=== PATIENT | male | born 1990 | race Caucasian/White ===

== ENCOUNTER 2022-09-16 20:19 | Emergency (ER) | payer MEDICAID, OTHER ==
[2022-09-16] MEDS ORDERED: SODIUM CHLORIDE 0.9% 1,000 ML IV STA (20:43)
[2022-09-16] MEDS ORDERED: PROCHLORPERAZINE 10 MG/2 ML VIAL IVP STA (20:43)
[2022-09-16] MEDS ORDERED: diphenhydrAMINE INJ 50 MG/ML VIAL IVP STA (20:44)
--- NOTE | 2022-09-16 20:46 | ED Physician Documentation ---
History of Present Illness - Stated complaint Stated Complaint: HEADACHE - Chief complaint Chief Complaint: Neuro - Additonal information Additional information: 32-year-old male presents emergency department for evaluation what he believes to be a thunderclap headache. At approximately 7:50 PM he was sitting at the computer when he developed a sharp stabbing sensation in his left frontal area that he reports was excruciating and unbearable. Point to maximal intensity was just a few seconds. He did attempt to take some ibuprofen without relief of the symptoms. No history of headaches in the past no recent falls or trauma. Denies light or noise sensitivity. He does not have a history of migraines though his sister does. Patient is not anticoagulated. Review of Systems Constitutional: denies: Fever, Chills Eyes: denies: Loss of vision, Decreased vision, Photophobia Ears: reports: Reviewed and negative Throat: reports: Reviewed and negative Cardiac: reports: Reviewed and negative Respiratory: reports: Reviewed and negative GI: reports: Reviewed and negative : reports: Reviewed and negative Neurologic: reports: Headache. denies: Generalized weakness, Focal weakness, Numbness, Difficulty speaking, Syncope, Seizure, Confused, Head injury, LOC PD PAST MEDICAL HISTORY - Past Medical History Past Medical History: No - Past Surgical History Past Surgical History: No - Present Medications Home Medications: Ambulatory Orders Medication Instructions Recorded Confirmed No Known Home Medications 09/16/22 09/16/22 - Allergies Allergies/Adverse Reactions: Allergies Allergy/AdvReac Type Severity Reaction Status Date / Time No Known Drug Allergies Allergy Verified 09/16/22 20:29 - Social History Does the pt smoke?: No Smoking Status: Never smoker Does the pt drink ETOH?: Yes ETOH Use: Wine, Beer, Liquor Does the pt have substance abuse?: No - Immunizations Immunizations are current?: Yes - POLST Patient has POLST: No PD ED PE NORMAL - General General: Alert and oriented X 3, No acute distress - HEENT HEENT: Atraumatic, EOMI, Ears normal, Moist mucous membranes, Pharynx benign - Neck Neck: Supple, no meningeal sign, No adenopathy - Cardiac Cardiac: RRR, No murmur - Respiratory Respiratory: No respiratory distress, Clear bilaterally - Abdomen Abdomen: Normal bowel sounds, Soft - Back Back: No CVA TTP, No spinal TTP - Derm Derm: Normal color, Warm and dry, No rash - Extremities Extremities: No deformity, No tenderness to palpate, Normal ROM s pain - Neuro Neuro: Alert and oriented X 3, 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, No motor deficit, No sensory deficit, Normal speech Eye Opening: Spontaneous Motor: Obeys Commands Verbal: Oriented GCS Score: 15 Results - Vitals Vitals: Vital Signs - 24 hr 09/16/22 09/16/22 09/16/22 20:25 21:13 21:44 Temperature 36.4 C L 36.9 C Heart Rate 111 H 87 86 Respiratory 18 19 16 Rate Blood Pressure 146/99 H 147/81 H 140/70 H O2 Saturation 99 100 100 Oxygen O2 Source Room air PD MEDICAL DECISION MAKING - ED course Complexity details: reviewed results, re-evaluated patient, considered differential, d/w patient ED course: 32-year-old male presents to the emergency department for evaluation of a sudden onset headache that occurred at 1950 this evening when he was sitting at the computer. He describes it as thunderclap severe and time to maximal intensity of just a few seconds. He does not have any history of migraines or similar in the past. He took ibuprofen without relief of pain. He presents to the emergency department concerned that he could have a subarachnoid hemorrhage. On presentation he is alert and well-appearing. He has no focal neurodeficits. I did administer Compazine and Benadryl with moderate relief of the headache but given the concern for thunderclap and sudden onset a CT of the head will be completed to evaluate for subarachnoid hemorrhage. Given that the timing is less than [address] without contrast or angiogram should be sufficient. Departure - Departure Disposition: 01 Home, Self Care Clinical Impression: Headache Qualifiers: Headache type: unspecified Headache chronicity pattern: acute headache Intractability: not intractable Qualified Code(s): R51.9 - Headache, unspecified Condition: Stable Record reviewed to determine appropriate education?: Yes Comments: Kai brumfield are seen today in the emergency room because department because at approximately 7:50 PM you developed a sudden onset thunderclap headache. You came to the emergency department concerned that you could have a form of a stroke called a subarachnoid hemorrhage. Here in the emergency department your vital signs and neurological exam were completely normal. We did give you a dose of Compazine and Benadryl which seems to be improving the symptoms. We did complete a CT of your head to evaluate for the concern for subarachnoid hemorrhage and the CT scan did not show any findings to suggest such. At this time you are stable for discharge home. I recommend good hydration at home. You can alternate ibuprofen or Tylenol for continued analgesia. Please discuss this ED visit with your primary care provider. Return to the ER if you develop any sudden or worsening symptoms.
[2022-09-16 21:45] VITALS: BP 140/70
--- NOTE | 2022-09-16 22:00 | CT Report ---
PROCEDURE: HEAD WO INDICATIONS: left frontal thunderclap headache TECHNIQUE: Noncontrast 4.5 mm thick angled axial sections acquired from the foramen magnum to the vertex. For r adiation dose reduction, the following was used: automated exposure control, adjustment of mA and/or kV according to patient size. COMPARISON: None. FINDINGS: Image quality: Excellent. CSF spaces: Basal cisterns are patent. No extra-axial fluid collections. Ventricles are normal in size and shape. Brain: No intracranial hemorrhage, mass, or mass effect. Bagley-white matter interface appears preser elda. Skull and face: Calvarium and visualized facial bones are intact, without suspicious lesions. Sinuses: Visualized sinuses and mastoids are clear. IMPRESSION: 1. No acute intracranial abnormality. Reviewed by: Ruben Cortez MD on 09/16/2022 9:59 PM [facility] Approved by: Ruben Cortez MD on 09/16/2022 9:59 PM [facility] Station ID: [id number]
== END 2022-09-16 22:07 | disposition home or self-care (01) ==
LOC: ED 20:19
DX: R51.9 Headache, unspecified (principal)
CPT/HCPCS: 70450; 96361; 96374; 96375; 99282; 99284; J1200